=== PATIENT | female | born 1980 | race Caucasian/White ===

== ENCOUNTER 2024-12-29 08:39 | Outpatient (CLI) | payer BC, SELFPAY ==
--- NOTE | 2024-12-29 09:00 | CRLHL7_ITS ---
For Patients: As a result of the Century Cures Act, medical imaging exams and procedure reports are released immediately into your electronic medical record. You may view this report before your referring provider. If you have questions, please contact your health care provider. Indication: DEVIATED NASAL SEPTUM, BILATERAL EAR PAIN FOR 6-8 WEEKS, RIGHT EAR PAIN WORSE, HISTORY OF BREAST CANCER Technique: Performed without IV contrast Comparison: None available Findings: Frontal sinuses: Clear. Ethmoid sinuses: Clear. Maxillary sinuses: Mild mucosal thickening is present within the maxillary sinuses. The maxillary sinus drainage pathways are patent on both sides. Sphenoid sinuses: Clear, including both sphenoethmoidal recesses. Nasal Cavity: Rightward deviation of the nasal septum with an associated right-sided spur measuring 6 millimeters. Minimal fluid is present within the mastoid air cells. Clear middle ear cavities. Impression: 1. Rightward deviation of the nasal septum with right-sided nasal septal spur. Paradoxical turn of the left middle turbinate. 2. Minimal maxillary sinus disease bilaterally. Trace mastoid effusions. Please note that all CT scans at this facility use dose modulation, iterative reconstruction, and/or weight-based dosing when appropriate to reduce radiation dose to as low as reasonably achievable. Dictated by Glen Shirley MD @ 12/29/2024 10:37:53 AM (Electronically Signed)
== END 2024-12-29 08:40 | disposition home or self-care (01) ==
LOC: CT 08:40
PROVIDERS: Visit Provider Physician Assistant
DX: J34.2 Deviated nasal septum (principal); J32.0 Chronic maxillary sinusitis; H92.03 Otalgia, bilateral; H69.93 Unspecified Eustachian tube disorder, bilateral; Z85.3 Personal history of malignant neoplasm of breast
CPT/HCPCS: 70486

== ENCOUNTER 2025-03-09 09:13 | Day surgery (SDC) | payer BC, SELFPAY ==
[2025-03-09] VITALS (13 sets, daily range): BP systolic 111–132; BP diastolic 69–92; PULSE 65–79; RESP 14–24; TEMP 36.5–36.8; O2SAT 92–97; BMI 34.7
[2025-03-09] MEDS: LACTATED RINGERS 1000 ML 1,000 ML 100 ML IV (09:15)
[2025-03-09] MEDS: SODIUM CHLORIDE 0.9 % (FLUSH) 10 ML SYRINGE IVF (09:31)
[2025-03-09] MEDS: OXYMETAZOLINE 0.05% NASAL SPRAY 2 SPRAY NOSTRIL-B (09:43)
[2025-03-09] MEDS: MUPIROCIN 1 GM PACKET 1 APPLIC TOPICAL (10:47)
[2025-03-09] MEDS: AYR SALINE NASAL GEL 1 APPLIC NOSTRIL-B (11:00)
[2025-03-09] MEDS: BUPIVACAINE 0.5%/EPINEPHRINE 0.9 MG (30.9 ML) INJECTION (11:08)
--- NOTE | 2025-03-09 11:22 | P.ANES_ITS ---
Anesthesia Charges Start Date/Time Anesthesia Start Date: 03/09/25 Anesthesia Start Time: 10:29 Stop Date/Time Anesthesia Stop Date: 03/09/25 Anesthesia Stop Time: 11:23 Coding CPT Codes CPT Codes: ANESTH NOSE/SINUS SURGERY - 18750 ([id number]) P2 - PATIENT W/MILD SYST DISEASE, QK - CURAM DEVELOPER 2-4 CNCRNT ANES PROC, QX - BOUFFANT CURTAIN MACHINE TENDER SVC W/ MD MED DIRECTION
--- NOTE | 2025-03-09 11:22 | W.ANESCHARGE ---
Anesthesia Charges Start Date/Time Anesthesia Start Date: 03/09/25 Anesthesia Start Time: 10:29 Stop Date/Time Anesthesia Stop Date: 03/09/25 Anesthesia Stop Time: 11:23 Coding CPT Codes CPT Codes: ANESTH NOSE/SINUS SURGERY - 49211 ([id number]) P2 - PATIENT W/MILD SYST DISEASE, QK - MANAGER QUANTITATIVE 2-4 CNCRNT ANES PROC, QX - DERRICK CAR OPERATOR SVC W/ MD MED DIRECTION
--- NOTE | 2025-03-09 11:42 | P.ANES_ITS ---
Anesthesia Charges Start Date/Time Anesthesia Start Date: 03/09/25 Anesthesia Start Time: 10:29 Stop Date/Time Anesthesia Stop Date: 03/09/25 Anesthesia Stop Time: 11:23 Coding CPT Codes CPT Codes: ANESTH PROCEDURE ON MOUTH - 98721 ([id number]) QK - BOX SPRING MAKER 2-4 CNCRNT ANES PROC, QX - COMMERCIAL SALES DIRECTOR SVC W/ MD MED DIRECTION, P2 - PATIENT W/MILD SYST DISEASE
--- NOTE | 2025-03-09 11:42 | W.ANESCHARGE ---
Anesthesia Charges Start Date/Time Anesthesia Start Date: 03/09/25 Anesthesia Start Time: 10:29 Stop Date/Time Anesthesia Stop Date: 03/09/25 Anesthesia Stop Time: 11:23 Coding CPT Codes CPT Codes: ANESTH PROCEDURE ON MOUTH - 94314 ([id number]) QK - ELL TEACHER 2-4 CNCRNT ANES PROC, QX - BRIDGE IRONWORKER HELPER SVC W/ MD MED DIRECTION, P2 - PATIENT W/MILD SYST DISEASE
--- NOTE | 2025-03-09 11:53 | SUR.PHASEI ---
Patient meets discharge criteria from PACU.
[2025-03-09] MEDS: ACETAMINOPHEN 325 MG TABLET PO (12:14)
[2025-03-09] MEDS: IBUPROFEN 200 MG TABLET PO (12:14)
--- NOTE | 2025-03-09 12:25 | P.ENTPROC_ITS ---
Procedure Note Date of procedure: 03/09/25 Procedure: Preop diagnosis left middle turbinate da bullosa deviated septum nasal obstruction sinonasal headache left inferior turbinate hypertrophy Postoperative diagnosis same Procedure nasal septoplasty, endoscopic partial resection left middle turbinate da bullosa, submucous partial resection left inferior turbinate Under general trach anesthesia patient was prepped and draped usual fashion the nose decongested and injected. A right hemitransfixion incision was made. Left anterior posterior tunnels were created. A vertical incision was made through the cartilage and a right posterior tunnel created. A right anterior tunnel was then also created which allowed the septum to unfold and returned close to midline. The deflected posterior portions of septal bone and cartilage were resected a large piece trimmed and a bone trimmed and returned to intraseptal space. The anterior septum had a left bony premaxillary wing deformity beneath it this was removed with a chisel. This allowed the septum to return to midline without resection. The hemitransfixion was closed with 2 4-0 chromic sutures The left inferior turbinate was outfractured and the stab incision wait made with a 15 blade. A tunnel was created the Bartow dissector and a conservative anterior submucous resection performed. The Coblation Wand was used for hemostasis and to cauterize intramurally along the inferior 10% For the remainder procedure the 0 degree endoscope was utilized. The left da bullosa was medialized an incision was made with a 15 blade along the inferolateral aspect and then the bone crushed inward. The entire turbinate was then crushed with the Aditya forceps. Silastic stents were secured on either side of the septum and then Merocel packing placed above the stents on each side. The patient procedure well was taken recovery satisfactory condition. Blood loss was less than 20 mL. Surgeon: Saul Cowan MD
== END 2025-03-09 13:55 | disposition home or self-care (01) ==
LOC: OR 09:14
PROVIDERS: Visit Provider Otolaryngology
PROC: (CPT 31231; principal; 2025-03-09 10:30)
DX: J34.2 Deviated nasal septum (principal); J34.3 Hypertrophy of nasal turbinates; J34.89 Other specified disorders of nose and nasal sinuses; R51.9 Headache, unspecified
CPT/HCPCS: 30520; 30140; 31240; 00160; 00170; 81025; A9270; J0330; J1100; J2250; J2405; J2704; J3010; J7120